=== PATIENT | female | born 1940 | race Caucasian/White ===

== ENCOUNTER 2016-08-20 19:52 | Emergency (ER) | payer MEDICARE, BC ==
[~2016-08-20] VITALS: Ht 167.6 cm; Wt 68.2 kg
[~2016-08-20 19:52] MED LIST: ASPIRIN E.C. 8181 MG PO; ATIVAN 0.50.5 MG/TAB PO; AVELOX 400MG T400 MG PO; CHOLESTEROL MED; CRESTOR5 MG PO; DESYREL 50MG50 MG PO; MELATONIN3 M1 PO; MYCELEX TROCHE10 MG MM; PROTONIX20 MG PO; ZOLOFT 25MG25 MG PO
[2016-08-20 20:03] VITALS: TEMP 98.6
[2016-08-20 23:22] VITALS: BP 133/65; PULSE 100
== END 2016-08-20 23:23 | disposition home or self-care (01) ==
LOC: COL.ER 19:52
DX: K56.41 Fecal impaction (principal)

== ENCOUNTER 2017-09-21 09:20 | Emergency (ER) | payer MEDICARE, BC ==
[~2017-09-21] VITALS: Ht 165.1 cm; Wt 68.2 kg
[2017-09-21 09:24] VITALS: TEMP 99.2
[2017-09-21 10:10] VITALS: BP 119/52; PULSE 72
== END 2017-09-21 10:11 | disposition home or self-care (01) ==
LOC: COL.ER 09:20
DX: T81.33XA Disruption of traumatic injury wound repair, initial encounter (principal); Z79.82 Long term (current) use of aspirin; W18.09XA Striking against other object with subsequent fall, initial encounter

== ENCOUNTER 2019-09-26 16:00 | Outpatient (RCR) | payer MEDICARE, BC | END 2019-11-18 | disposition home or self-care (01) | LOC: MKS.ESL.PT | DX: S32.040A Wedge compression fracture of fourth lumbar vertebra, initial encounter for closed fracture (principal) ==

== ENCOUNTER → 2020-05-22 | Outpatient (CLI) | payer MEDICARE, BC ==
[2020-05-22 10:08] LABS: HEMATOCRIT 39.2 % (37.0-47.0); HEMOGLOBIN 12.6 g/dl (12.5-16.0); MEAN CELL VOLUME 91 fl (80.0-100.0); MEAN CORPUSCULAR HEMOGLOBIN 29 pg (27.0-31.0); MEAN CORPUSCULAR HGB CONC 32 g/dl (33.0-37.0); MEAN PLATELET VOLUME 10.2 fl (7.4-10.4); PLATELET COUNT 167 K/mm3 (130-400); REDCELL DISTRIBUTION WIDTH-CV 13.4 % (11.5-14.5)
[2020-05-22 10:54] LABS: ERYTHROCYTE SEDIMENTATION RATE 11 mm/hr (0-30)
== END ==
LOC: COL.RAD 08:50
PROVIDERS: Physician Assistant
DX: Z09 Encounter for follow-up examination after completed treatment for conditions other than malignant neoplasm (principal); Z96.653 Presence of artificial knee joint, bilateral
CPT/HCPCS: A9503

== ENCOUNTER 2020-10-12 13:46 | Outpatient (CLI) | payer MEDICARE, BC ==
[2020-10-12 14:02] VITALS: BP 136/54; PULSE 76; TEMP 98.6
--- NOTE | 2020-10-12 14:15 | NUR ---
Evenity shots to BUE. Pt stayed for forty minutes after shot.
[2020-10-12] MEDS ORDERED: NEXIUM 40MG40 MG PO (14:26)
[2020-10-12] MEDS ORDERED: NASACORT OTC NS (14:27)
[2020-10-12] MEDS ORDERED: PRINZIDE 12.5 M1 TAB PO (14:27)
[2020-10-12] MEDS ORDERED: GENTEALSEVERE OP (14:28)
[2020-10-12] MEDS ORDERED: CALCIUM 600-D 61 TAB PO (14:28)
== END 2020-10-12 14:57 | disposition home or self-care (01) ==
LOC: EUO 13:46 → EDSTATUS 14:00 → EUO 14:57
DX: M48.54XD Collapsed vertebra, not elsewhere classified, thoracic region, subsequent encounter for fracture with routine healing (principal); Z79.899 Other long term (current) drug therapy
CPT/HCPCS: J3111

== ENCOUNTER 2020-11-09 12:50 | Outpatient (CLI) | payer MEDICARE, BC ==
[~2020-11-09] VITALS: Ht 165.1 cm; Wt 67.2 kg
[~2020-11-09 12:50] MED LIST changes: +CALCIUM 600-D 61 TAB PO; +GENTEALSEVERE OP; +NASACORT OTC NS; +NEXIUM 40MG40 MG PO; +PRINZIDE 12.5 M1 TAB PO
[2020-11-09] MEDS ORDERED: SYNTHROID0.075 MG/T PO (13:41)
[2020-11-09 13:52] VITALS: BP 126/68; PULSE 72; TEMP 98.2
== END 2020-11-09 14:38 | disposition home or self-care (01) ==
LOC: EUO 12:50
DX: M48.54XD Collapsed vertebra, not elsewhere classified, thoracic region, subsequent encounter for fracture with routine healing (principal); Z79.899 Other long term (current) drug therapy
CPT/HCPCS: J3111

== ENCOUNTER 2020-12-08 13:01 | Outpatient (RCR) | payer MEDICARE, BC ==
[~2020-12-08] VITALS: Ht 165.1 cm; Wt 66.7 kg
[~2020-12-08 13:01] MED LIST changes: +SYNTHROID0.075 MG/T PO
[2020-12-08 13:23] VITALS: BP 147/63; PULSE 70; TEMP 98.2
== END 2020-12-08 14:00 | disposition home or self-care (01) ==
LOC: EUO 13:01
DX: M48.54XD Collapsed vertebra, not elsewhere classified, thoracic region, subsequent encounter for fracture with routine healing (principal); Z79.899 Other long term (current) drug therapy
CPT/HCPCS: J3111

== ENCOUNTER 2021-01-13 15:28 | Outpatient (RCR) | payer MEDICARE, BC ==
[~2021-01-13] VITALS: Ht 165.1 cm; Wt 66.4 kg
[2021-01-13 16:30] VITALS: BP 134/62; PULSE 74; TEMP 98.9
== END 2021-01-13 16:00 | disposition home or self-care (01) ==
LOC: EUO 15:28
DX: M48.54XD Collapsed vertebra, not elsewhere classified, thoracic region, subsequent encounter for fracture with routine healing (principal); Z79.899 Other long term (current) drug therapy
CPT/HCPCS: J3111

== ENCOUNTER 2021-02-08 13:29 | Outpatient (CLI) | payer MEDICARE, BC ==
[~2021-02-08] VITALS: Ht 165.1 cm; Wt 65.4 kg
[2021-02-08 13:51] VITALS: BP 116/72; PULSE 75; TEMP 98.5
== END 2021-02-08 14:26 | disposition home or self-care (01) ==
LOC: EUO 13:29
DX: M48.54XD Collapsed vertebra, not elsewhere classified, thoracic region, subsequent encounter for fracture with routine healing (principal)
CPT/HCPCS: J3111

== ENCOUNTER 2021-03-08 13:34 | Outpatient (RCR) | payer MEDICARE, BC ==
[~2021-03-08] VITALS: Ht 165.1 cm; Wt 64.2 kg
[2021-03-08 14:01] VITALS: BP 102/60; PULSE 96; TEMP 98.2
[2021-03-08] MEDS ORDERED: PRINIVIL10 MG PO (14:10)
[2021-03-08] MEDS ORDERED: PRINZIDE 12.5 M1 TAB PO (14:13)
== END 2021-03-08 14:35 | disposition home or self-care (01) ==
LOC: EUO 13:34
DX: M48.54XD Collapsed vertebra, not elsewhere classified, thoracic region, subsequent encounter for fracture with routine healing (principal); Z79.899 Other long term (current) drug therapy
CPT/HCPCS: J3111

== ENCOUNTER 2021-04-05 13:24 | Outpatient (RCR) | payer MEDICARE, BC ==
[~2021-04-05] VITALS: Ht 165.1 cm; Wt 63.8 kg
[~2021-04-05 13:24] MED LIST changes: +PRINIVIL10 MG PO
[2021-04-05 14:00] VITALS: BP 142/73; PULSE 68; TEMP 98.3
== END 2021-04-05 14:21 | disposition home or self-care (01) ==
LOC: EUO 13:24
DX: M48.54XD Collapsed vertebra, not elsewhere classified, thoracic region, subsequent encounter for fracture with routine healing (principal)
CPT/HCPCS: J3111

== ENCOUNTER 2021-05-03 13:26 | Outpatient (RCR) | payer MEDICARE, BC ==
[~2021-05-03] VITALS: Ht 165.1 cm; Wt 62.3 kg
[2021-05-03 13:49] VITALS: BP 108/58; PULSE 78; TEMP 98.1
== END 2021-07-09 | disposition home or self-care (01) ==
LOC: EUO
DX: M48.54XD Collapsed vertebra, not elsewhere classified, thoracic region, subsequent encounter for fracture with routine healing (principal); Z98.890 Other specified postprocedural states
CPT/HCPCS: J3111

== ENCOUNTER 2021-05-31 13:32 | Outpatient (RCR) | payer MEDICARE, BC ==
[~2021-05-31] VITALS: Ht 165.1 cm; Wt 64.9 kg
[2021-05-31 13:50] VITALS: BP 129/51; PULSE 72; TEMP 97.8
== END 2021-05-31 14:31 | disposition home or self-care (01) ==
LOC: EUO 13:32
DX: M48.54XD Collapsed vertebra, not elsewhere classified, thoracic region, subsequent encounter for fracture with routine healing (principal)
CPT/HCPCS: J3111

== ENCOUNTER 2021-06-28 13:31 | Outpatient (RCR) | payer MEDICARE, BC ==
[~2021-06-28] VITALS: Ht 165.1 cm; Wt 63.8 kg
[2021-06-28 14:00] VITALS: BP 144/68; PULSE 68; TEMP 97.5
== END 2021-06-28 14:35 | disposition home or self-care (01) ==
LOC: EUO 13:31
DX: M48.54XD Collapsed vertebra, not elsewhere classified, thoracic region, subsequent encounter for fracture with routine healing (principal)
CPT/HCPCS: J3111

== ENCOUNTER 2021-07-26 13:24 | Outpatient (RCR) | payer MEDICARE, BC ==
[~2021-07-26] VITALS: Ht 165.1 cm; Wt 65.4 kg
[2021-07-26 14:13] VITALS: BP 149/70; PULSE 67; TEMP 98.2
== END 2021-07-26 14:35 | disposition home or self-care (01) ==
LOC: EUO 13:24
DX: M48.54XD Collapsed vertebra, not elsewhere classified, thoracic region, subsequent encounter for fracture with routine healing (principal)
CPT/HCPCS: J3111

== ENCOUNTER 2021-08-23 13:29 | Outpatient (CLI) | payer MEDICARE, BC ==
[~2021-08-23] VITALS: Ht 165.1 cm; Wt 64.5 kg
[2021-08-23 13:55] VITALS: BP 127/62; PULSE 74; TEMP 98.1
[2021-08-23] MEDS ORDERED: CALCIUM CITRATE1 TA4 PO (14:03)
== END 2021-08-23 14:24 | disposition home or self-care (01) ==
LOC: EUO 13:29
DX: M48.54XD Collapsed vertebra, not elsewhere classified, thoracic region, subsequent encounter for fracture with routine healing (principal)
CPT/HCPCS: J3111

== ENCOUNTER 2021-11-29 14:52 | Outpatient (CLI) | payer MEDICARE, BC ==
[~2021-11-29 14:52] MED LIST changes: +CALCIUM CITRATE1 TA4 PO
[2021-11-29 15:51] VITALS: BP 128/82; PULSE 71; TEMP 98.5
== END 2021-11-29 16:00 | disposition home or self-care (01) ==
LOC: EUO 14:52
DX: M81.0 Age-related osteoporosis without current pathological fracture (principal)
CPT/HCPCS: J0897

== ENCOUNTER → 2023-05-09 | Outpatient (CLI) | payer MEDICARE, BC | LOC: COL.RAD 12:27 | DX: M19.011 Primary osteoarthritis, right shoulder (principal); M19.012 Primary osteoarthritis, left shoulder; M25.711 Osteophyte, right shoulder; M24.011 Loose body in right shoulder ==

== ENCOUNTER → 2023-05-09 | Outpatient (CLI) | payer MEDICARE, BC | LOC: MHCPAIN 10:58 | DX: M25.512 Pain in left shoulder (principal); M25.611 Stiffness of right shoulder, not elsewhere classified; M25.612 Stiffness of left shoulder, not elsewhere classified; M25.511 Pain in right shoulder | CPT/HCPCS: G0463 ==

== ENCOUNTER → 2023-06-06 | Outpatient (CLI) | payer MEDICARE, BC ==
[~2023-06-06] MED LIST changes: +PROLIA60 MG/ML SQ; +ZOLOFT 100MG100 MG PO
== END ==
LOC: MHCPAIN 14:55
DX: M19.011 Primary osteoarthritis, right shoulder (principal); M25.511 Pain in right shoulder
CPT/HCPCS: J3301

== ENCOUNTER → 2023-08-29 | Outpatient (CLI) | payer MEDICARE, BC | LOC: MHCPAIN 13:00 | DX: M19.012 Primary osteoarthritis, left shoulder (principal); M25.512 Pain in left shoulder | CPT/HCPCS: G0463 ==

== ENCOUNTER 2024-04-27 16:00 | Emergency (ER) | payer MEDICARE, BC ==
[~2024-04-27] VITALS: Ht 165.1 cm; Wt 54.5 kg
[2024-04-27 16:04] VITALS: TEMP 97.7
[2024-04-27 16:36] LABS: BASO % 0.5 % (0.0-2.0); EOS # 0.1 K/mm3 (0.0-0.7); EOS % 1.8 % (0.0-4.0); GRAN # 3.6 K/mm3 (1.4-6.5); GRAN % 58.4 % (42.2-75.2); HEMATOCRIT 45.1 % (37.0-47.0); HEMOGLOBIN 14.6 g/dl (12.5-16.0); LYMPH # 2.1 K/mm3 (1.2-3.4); LYMPH % 33.4 % (20.0-51.0); MEAN CELL VOLUME 93 fl (80.0-100.0); MEAN CORPUSCULAR HEMOGLOBIN 30 pg (27-31); MEAN CORPUSCULAR HGB CONC 32 g/dl (33.0-37.0); MEAN PLATELET VOLUME 10.6 fl (7.4-10.4); MONO # 0.4 K/mm3 (0.1-0.6); MONO % 5.7 % (1.7-9.3); PLATELET COUNT 168 K/mm3 (130-400); RED BLOOD COUNT 4.85 M/mm3 (4.10-5.30); REDCELL DISTRIBUTION WIDTH-CV 12.9 % (11.5-14.5)
[2024-04-27 16:47] LABS: ALBUMIN 4.4 g/dL (3.4-4.8); BILIRUBIN,TOTAL 0.3 mg/dL (0.2-1.2); CALCIUM 10.1 mg/dL (8.4-10.2); CREATININE, serum 0.89 mg/dL (0.57-1.11); POTASSIUM 3.7 mEq/L (3.5-4.5)
[2024-04-27 16:52] LABS: TROPONIN-I 0.014 ng/mL (0.00-0.033)
[2024-04-27 17:01] LABS: COLLECTION METHOD CLEAN CATCH
[2024-04-27 17:12] LABS: URINE APPEARANCE CLEAR (CLEAR/HAZY); URINE BLOOD NEGATIVE (NEGATIVE); URINE COLOR YELLOW (YELLOW); URINE GLUCOSE NEGATIVE (NEGATIVE); URINE KETONE NEGATIVE (NEGATIVE); URINE NITRATE NEGATIVE (NEGATIVE); URINE PROTEIN(semi-quant) TRACE (NEGATIVE); URINE UROBILINOGEN 0.2 E.U/dL (0.2-1.0)
[2024-04-27 17:46] LABS: THYROID STIMULATING HORMONE 3.695 uIU/mL (0.350-4.940)
[2024-04-27 19:18] VITALS: BP 132/66; PULSE 81
== END 2024-04-27 19:18 | disposition home or self-care (01) ==
LOC: COL.ER 16:00
PROVIDERS: Family Medicine
DX: R00.2 Palpitations (principal)

== ENCOUNTER 2024-06-12 12:27 | Outpatient (CLI) | payer MEDICARE, BC ==
[~2024-06-12] VITALS: Ht 165.1 cm; Wt 54.0 kg
[2024-06-12] MEDS ORDERED: Denosumab 60 MG/ML SYRINGE SQ ONE (12:45)
[2024-06-12 13:30] VITALS: BP 115/67; PULSE 72; TEMP 98
[2024-06-12] MEDS ORDERED: PEPCID 20MG TAB20 MG PO (14:41)
[2024-06-12] MEDS ORDERED: LOPRESSOR 225 MG/TAB PO (14:42)
== END 2024-06-12 14:15 | disposition home or self-care (01) ==
LOC: EUO 12:27
DX: M81.0 Age-related osteoporosis without current pathological fracture (principal)
CPT/HCPCS: J0897